=== PATIENT | male | born 1980 | race Caucasian/White ===

== ENCOUNTER 2023-10-08 15:23 | Emergency (ER) | payer SELFPAY ==
[2023-10-08 15:29] VITALS: BP 133/83; PULSE 110; RESP 16; O2SAT 95; BMI 30.1
[2023-10-08 15:35] VITALS: TEMP 36.8
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
[2023-10-08] MEDS: MORPHINE SULFATE 4 MG/ML VIAL IV (16:11)
[2023-10-08] MEDS: ORPHENADRINE 60 MG/ 2 ML VIAL IV (16:12)
[2023-10-08] MEDS: ONDANSETRON PF 4 MG/2 ML VIAL IV (16:12)
[2023-10-08 16:16] LABS: Basophils Percent Auto 0.3 % (0.2-2.0); Eosinophils Absolute Auto 0.4 10^3/uL (0.0-0.7); Eosinophils Percent Auto 3.7 % (0.9-7.0); Hematocrit 33.4 % (42.0-54.0); Hemoglobin 10.8 g/dL (14.0-18.0); Immature Granulocytes Abs Auto 0.04 10^3/uL (0.00-0.03); Immature Granulocytes Pct Auto 0.3 % (0.0-0.5); Lymphocytes Absolute Auto 2.6 10^3/uL (1.2-3.8); Lymphocytes Percent Auto 22.4 % (20.5-60.0); Mean Corpuscular HGB Conc 32.3 g/dL (29.9-35.2); Mean Corpuscular Hemoglobin 31.1 pg (25.9-34.0); Mean Corpuscular Volume 96.3 fL (80.0-94.0); Mean Platelet Volume 9.5 fL (9.5-13.5); Monocytes Absolute Auto 0.9 10^3/uL (0.3-0.8); Monocytes Percent Auto 7.4 % (1.7-12.0); Neutrophils Absolute Auto 7.7 10^3/uL (1.4-6.5); Neutrophils Percent Auto 65.9 % (43.0-75.0); Platelet Count 392 10^3/uL (150-450); Red Blood Count 3.47 10^6/uL (4.70-6.10); Red Cell Distribution Width 14.3 % (11.0-15.0); White Blood Count 11.6 10^3/uL (4.0-11.0)
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
--- NOTE | 2023-10-08 16:47 | CT_ITS ---
The [address] [address] Patient Name: TORI KU MRN: [id number] date: 1980 Sex: M Assigned Patient Location: ER Current Patient Location: ER Accession/Order Number: [id number] Exam Date: 10/08/2023 16:38 Report Date: 10/08/2023 17:33 At the request of: KASIE BALDWIN Procedure: CT cervical spine wo con EXAM: CT cervical spine wo con HISTORY: trauma fall back pain COMPARISON: None. TECHNIQUE: CT Cervical spine without IV contrast. Coronal and sagittal reformations were performed. Dose reduction techniques were achieved by using automated exposure control and/or adjustment of mA and/or kV according to patient size and/or use of iterative reconstruction technique. FINDINGS: Osseous: The vertebral body heights are maintained. No fracture. Disc height loss and osteophytes at C6/C7. Soft tissues: No focal fluid collection. Disc levels: C2-C3: No disc protrusion, spinal canal stenosis, or neural foraminal stenosis. C3-C4: No disc protrusion, spinal canal stenosis, or neural foraminal stenosis. C4-C5: Posterior central disc protrusion. Mild spinal canal stenosis. No significant foraminal stenosis. C5-C6: Small broad-based posterior disc bulge/osteophyte complex. Mild spinal canal stenosis. Mild left foraminal stenosis. C6-C7: Posterior disc/osteophyte complex. Mild spinal canal stenosis. Mild left foraminal stenosis. C7-T1: No disc protrusion, spinal canal stenosis, or neural foraminal stenosis. CT/CT cervical spine wo con IMPRESSION: No cervical spine fracture or subluxation. Electronically authenticated by: WALE KULKARNI Date: 10/08/2023 17:33
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
[2023-10-08 16:52] LABS: Alanine Aminotransferase 40 U/L (16-63); Albumin Globulin Ratio 0.9; Albumin Level 3.6 g/dL (3.4-5.0); Alkaline Phosphatase 82 U/L (46-116); Anion Gap 10.4; Aspartate Amino Transferase 31 U/L (15-37); BUN Creatinine Ratio 5.1; Bilirubin Total 0.5 mg/dL (0.2-1.0); Calcium 8.9 mg/dL (8.5-10.1); Chloride 100 mmol/L (98-107); Estimated GFR (African America >60 (>=60); Estimated GFR (Non-African Ame >60 (>=60); Globulin 3.9 g/dL; Glucose 89 mg/dL (74-106); Potassium 4.4 mmol/L (3.5-5.1); Sodium 137 mmol/L (136-145); Total Protein 7.5 g/dL (6.4-8.2)
--- NOTE | 2023-10-08 16:58 | XR_ITS ---
The [address] [address] Patient Name: TORI KU MRN: [id number] date: 1980 Sex: M Assigned Patient Location: ER Current Patient Location: ER Accession/Order Number: [id number] Exam Date: 10/08/2023 16:47 Report Date: 10/08/2023 17:40 At the request of: KASIE BALDWIN Procedure: XR pelvis 1-2V EXAM: XR pelvis 1-2V HISTORY: trauma COMPARISON: None. TECHNIQUE: One view of the pelvis FINDINGS: There is no acute fracture or dislocation. The soft tissues are unremarkable. Constipation. XR/XR pelvis 1-2V IMPRESSION: No acute process. Electronically authenticated by: CHRISTOPHER VELASQUEZ Date: 10/08/2023 17:40
--- NOTE | 2023-10-08 16:58 | XR_ITS ---
The [address] [address] Patient Name: TORI KU MRN: [id number] date: 1980 Sex: M Assigned Patient Location: ER Current Patient Location: ER Accession/Order Number: [id number] Exam Date: 10/08/2023 16:47 Report Date: 10/08/2023 17:39 At the request of: KASIE BALDWIN Procedure: XR ankle BART min 3V EXAM: XR ankle BART min 3V HISTORY: trauma COMPARISON: None. TECHNIQUE: 3 views of right and left ankles FINDINGS: Right ankle: There is no acute fracture or dislocation. Ankle mortise is unremarkable. The soft tissues are unremarkable. Left ankle: Nondisplaced fracture through the medial malleolar osteophyte. The ankle mortise is normal. Talar dome is congruent. There is soft tissue swelling about the ankle. XR/XR ankle BART min 3V IMPRESSION: Nondisplaced fracture through the left medial malleolar osteophyte and soft tissue swelling of the ankle. Electronically authenticated by: CHRISTOPHER VELASQUEZ Date: 10/08/2023 17:39
[2023-10-08] MEDS: KETOROLAC TROMETHAMINE 30 MG/ML VIAL IVP (17:31)
--- NOTE | 2023-10-08 17:34 | PC.NURSE ---
This nurse goes in to room to medicate pt for pain, pt asked what pain med he was getting, this nurse informed pt Toradol was ordered. Pt calling this med Ultram and this nurse informed pt that Ultram was not the med ordered twice during pt's rant about needing pain medication and knowing what you people are doing and so on. This nurse then asked pt if he wanted the pain medication ordered twice during this rant and pt then states go ahead but he adds he is not drug seeking and he is in pain. This nurse then informed pt staff will be informed of his complaints. Pt's grandparents at bedside. Call light remains in reach if needed.
[2023-10-08] MEDS: HYDROMORPHONE HCL 0.5 MG/0.5 ML SYRINGE IV (18:56)
[2023-10-08 19:03] VITALS: BP 102/78; PULSE 104; RESP 20; O2SAT 96
== END 2023-10-08 19:07 | disposition home or self-care (01) ==
PROVIDERS: Physician Assistant; Emergency Provider Emergency Medicine Emergency Medical Services
DX: M54.50 Low back pain, unspecified (principal); S30.22XA Contusion of scrotum and testes, initial encounter; M25.572 Pain in left ankle and joints of left foot; M25.571 Pain in right ankle and joints of right foot; V28.41XA Electric (assisted) bicycle driver injured in noncollision transport accident in traffic accident, initial encounter
CPT/HCPCS: 36415; 70450; 72125; 72131; 72170; 73610; 76870; 80053; 85025; 96374; 96375; 99285; J1170